=== PATIENT | male | born 1985 | race Caucasian/White ===

== ENCOUNTER 2020-04-05 23:19 | Emergency (ER) | payer SELFPAY ==
--- NOTE | 2020-04-05 23:53 | EDM.PDOC ---
ED HPI GENERAL MEDICAL PROBLEM - General Chief Complaint: General Stated Complaint: MEDICAL CLEARANCE - L shoulder pain Time Seen by Provider: 04/05/20 23:25 Source of Information: Reports: Patient, Police History Limitations: Reports: No Limitations - History of Present Illness INITIAL COMMENTS - FREE TEXT/NARRATIVE: History of present illness: [Patient is 34-year-old male who presents with the police for medical clearance. He was involved in a foot pursuit, eventually wrestled to the ground and handcuffed and taken into custody by police. He complains of some left shoulder pain. Denies any blurry vision, headache, major head trauma, loss of consciousness. Denies chest pain or shortness of breath. Denies fever and chills. States that his left shoulder "just does not feel right." ] Review of systems: As per history of present illness and below otherwise all systems reviewed and negative. Past medical history: As per history of present illness and as reviewed below otherwise noncontributory. Surgical history: As per history of present illness and as reviewed below otherwise noncontributory. Social history: No reported history of drug or alcohol abuse. Family history: As per history of present illness and as reviewed below otherwise noncontributory. Physical exam: General: Awake, alert, no acute distress, A&O X3. HEENT: Atraumatic, normocephalic, pupils reactive, negative for conjunctival pallor or scleral icterus, mucous membranes moist, throat clear, neck supple, nontender, trachea midline. Lungs: Clear to auscultation, breath sounds equal bilaterally, chest nontender. Heart: RRR, normal S1S2, no JVD. Abdomen: Soft, nondistended, nontender. Negative for masses or hepatosplenomegaly. Negative for costovertebral tenderness. Pelvis: Stable nontender. Genitourinary: Deferred. Rectal: Deferred. Extremities: Suspected anterior left shoulder dislocation based on physical exam. Limited range of motion of the left shoulder due to pain. Left arm is neurovascular intact. Neuro: Motor and sensory grossly intact throughout. Exam nonfocal. Diagnostics: [] Therapeutics: [] Impression: [] Plan: [] Definitive disposition and diagnosis as appropriate pending reevaluation and review of above. Past Medical History - Past Health History Medical/Surgical History: Denies Medical/Surgical History - Infectious Disease History Infectious Disease History: Reports: None Social & Family History - Family History Family Medical History: Noncontributory - Tobacco Use Smoking Status *Q: Never Smoker - Caffeine Use Caffeine Use: Reports: Coffee - Recreational Drug Use Recreational Drug Use: No ED ROS GENERAL - Review of Systems Review Of Systems: Comprehensive ROS is negative, except as noted in HPI. ED EXAM, GENERAL - Physical Exam Exam: See Below (see h and p) ED GENERAL MEDICAL PROCEDURES - Joint Reduction Left Shoulder Sedation: Conscious Sedation Pre-procedure NV status: Normal Post-procedure NV status: Normal Technique: Traction/Counter Traction Number of Attempts: 1 Post-Reduction Imaging: Completely Reduced Joint Reduction Complications: No - Additional/Other Procedure(s) Other (Free Text) Procedure(s): procedural sedation performed using 2 mg versed and 100 mcg fentanyl IV. Patient tolerated well, no immediate complications. Returned to baseline mental status prior to discharge. Course - Vital Signs Text/Narrative:: Patient had successful reduction of his shoulder dislocation. Return to his baseline mental status prior to discharge after being sedated with fentanyl and Versed here in the ED. Left arm was neurovascular intact before and after the procedure as well. Patient is agreeable to discharge into police custody and encouraged to follow-up with orthopedic surgery in the future. Return precautions provided otherwise patient is stable at discharge. Last Recorded V/S: Last Vital Signs Temp 37.4 C 04/05/20 23:36 Pulse 97 04/05/20 23:36 Resp 17 04/05/20 23:36 BP 164/92 H 04/05/20 23:36 Pulse Ox 95 04/05/20 23:36 - Orders/Labs/Meds Orders: Active Orders 24 hr Category Date Time Status Shoulder Comp Lt [CR] Stat Exams 04/06/20 00:26 Taken Sodium Chloride 0.9% [Saline Flush] Med 04/05/20 23:54 Active 10 ml FLUSH ASDIRECTED PRN Sodium Chloride 0.9% [Saline Flush] Med 04/05/20 23:54 Active 2.5 ml FLUSH ASDIRECTED PRN DME for Discharge [COMM] Stat Oth 04/06/20 00:51 Ordered Saline Lock Insert [OM.PC] Stat Oth 04/05/20 23:54 Ordered Medication Orders Sodium Chloride (Saline Flush) 10 ml FLUSH ASDIRECTED PRN PRN Reason: Keep Vein Open Last Admin: 04/06/20 00:43 Dose: 10 ml Documented by: [id number] Sodium Chloride (Saline Flush) 2.5 ml FLUSH ASDIRECTED PRN PRN Reason: Keep Vein Open Last Admin: 04/06/20 00:43 Dose: 2.5 ml Documented by: [email or web address] Labs: Laboratory Tests 04/05/20 Range/Units 23:46 POC Glucose 113 H (60-110) mg/dL Meds: Medications Generic Name Dose Route Start Last Admin Trade Name Freq PRN Reason Stop Dose Admin Sodium Chloride 10 ml 04/05/20 23:54 04/06/20 00:43 Saline Flush FLUSH 10 ml ASDIRECTED PRN Administration Keep Vein Open Sodium Chloride 2.5 ml 04/05/20 23:54 04/06/20 00:43 Saline Flush FLUSH 2.5 ml ASDIRECTED PRN Administration Keep Vein Open Discontinued Medications Generic Name Dose Route Start Last Admin Trade Name Freq PRN Reason Stop Dose Admin Fentanyl 100 mcg 04/06/20 00:03 04/06/20 00:43 Fentanyl IVPUSH 04/06/20 00:04 100 mcg ONETIME ONE Administration Midazolam HCl 2 mg 04/06/20 00:03 04/06/20 00:42 Versed 1 Mg/Ml IVPUSH 04/06/20 00:04 2 mg ONETIME ONE Administration Departure - Departure Time of Disposition: 01:05 Disposition: Home, Self-Care 01 Condition: Good Clinical Impression: Shoulder dislocation - Discharge Information Instructions: Shoulder Dislocation Referrals: PCP,None [Primary Care Provider] - Forms: ED Department Discharge Additional Instructions: [facility] - [facility] Clinic [address], [facility] [address] [place] [address] Follow-up with orthopedic surgery and PCP. Return to the ER with any new or worsening symptoms. Keep the sling on for the next 24 hours, gradually return to normal range of motion and activity and consultation with orthopedic surgery. The following information is given to patients seen in the emergency department who are being discharged to home. This information is to outline your options for follow-up care. We provide all patients seen in our emergency department with a follow-up referral. The need for follow-up, as well as the timing and circumstances, are variable depending upon the specifics of your emergency department visit. If you don't have a primary care physician on staff, we will provide you with a referral. We always advise you to contact your personal physician following an emergency department visit to inform them of the circumstance of the visit and for follow-up with them and/or the need for any referrals to a consulting specialist. The emergency department will also refer you to a specialist when appropriate. This referral assures that you have the opportunity for follow-up care with a specialist. All of these measure are taken in an effort to provide you with optimal care, which includes your follow-up. Under all circumstances we always encourage you to contact your private physician who remains a resource for coordinating your care. When calling for follow-up care, please make the office aware that this follow-up is from your recent emergency room visit. If for any reason you are refused follow-up, please contact the [facility] Emergency Department at and asked to speak to the emergency department charge nurse. Sepsis Event Note (ED) - Evaluation Sepsis Screening Result: No Definite Risk - Focused Exam Vital Signs: Vital Signs Temp Pulse Resp BP Pulse Ox 04/05/20 23:36 37.4 C 97 17 164/92 H 95 - My Orders Last 24 Hours: My Active Orders 04/05/20 23:54 Sodium Chloride 0.9% [Saline Flush] 10 ml FLUSH ASDIRECTED PRN Sodium Chloride 0.9% [Saline Flush] 2.5 ml FLUSH ASDIRECTED PRN Saline Lock Insert [OM.PC] Stat 04/06/20 00:26 Shoulder Comp Lt [CR] Stat 04/06/20 00:51 DME for Discharge [COMM] Stat - Assessment/Plan Last 24 Hours: My Active Orders 04/05/20 23:54 Sodium Chloride 0.9% [Saline Flush] 10 ml FLUSH ASDIRECTED PRN Sodium Chloride 0.9% [Saline Flush] 2.5 ml FLUSH ASDIRECTED PRN Saline Lock Insert [OM.PC] Stat 04/06/20 00:26 Shoulder Comp Lt [CR] Stat 04/06/20 00:51 DME for Discharge [COMM] Stat
[2020-04-05] MEDS ORDERED: Sodium Chloride 0.9% 2.5 ML Syringe FLUSH PRN (23:54)
[2020-04-05] MEDS ORDERED: Sodium Chloride 0.9% 10 ML Syringe FLUSH PRN (23:54)
[2020-04-06] MEDS ORDERED: fentaNYL 50 MCG/ML SDV IVPUSH ONE (00:03)
[2020-04-06] MEDS ORDERED: Midazolam 1 MG/ML 2 ML SDV IVPUSH ONE (00:03)
--- NOTE | 2020-04-06 00:21 | CR ---
Indication: Dislocation Technique: Three views of the left shoulder Comparison: None available Findings: Bones: Anteroinferior dislocation of the humeral head in relation to the glenoid. No displaced fractures seen. A small ovoid sclerotic focus in the glenoid which could represent a bone island. Joint spaces: Unremarkable. Soft tissues: Unremarkable. Impression: Anterior shoulder dislocation. Dictated by Ad Murcia MD @ 04/06/2020 12:19:02 AM Dictated by: Ad Murcia MD @ 04/06/2020 00:19:05 (Electronically Signed)
--- NOTE | 2020-04-06 01:02 | CR ---
INDICATION: Post reduction TECHNIQUE: Two views left shoulder 12:29 a.m. COMPARISON: The reduction views with 50 7 p.m. FINDINGS: Bones: Alignment is normal. No fractures or bone lesions. Joint spaces: Unremarkable. Soft tissues: Unremarkable. IMPRESSION: Anatomic alignment at the glenohumeral joint. No fractures. Dictated by Jc Mendoza MD @ 04/06/2020 1:02:04 AM Dictated by: Jc Mendoza MD @ 04/06/2020 01:02:09 (Electronically Signed)
== END 2020-04-06 01:25 | disposition home or self-care (01) ==
LOC: MW.ED 23:19
DX: S43.005A Unspecified dislocation of left shoulder joint, initial encounter (principal); S00.91XA Abrasion of unspecified part of head, initial encounter; F10.129 Alcohol abuse with intoxication, unspecified; Y93.72 Activity, wrestling
CPT/HCPCS: 23655; 73030; 82962; 99284; J2250; J3010; 99283

== ENCOUNTER 2024-05-15 00:58 | Emergency (ER) | payer BC ==
[2024-05-15] MEDS: Acetaminophen 500 MG Tab PO PRN (01:21)
[2024-05-15] MEDS: Ketorolac 30 MG/ML SDV IM PRN (01:22)
[2024-05-15] MEDS: oxyCODONE 5 MG Tab PO ONE (01:29)
[2024-05-15] MEDS: Ondansetron 4 MG Tab.DIS PO ONE (01:29)
== END 2024-05-15 02:54 | disposition home or self-care (01) ==
LOC: MW.ED 00:58
DX: S82.221A Displaced transverse fracture of shaft of right tibia, initial encounter for closed fracture (principal); S80.11XA Contusion of right lower leg, initial encounter; W01.118A Fall on same level from slipping, tripping and stumbling with subsequent striking against other sharp object, initial encounter; Z88.0 Allergy status to penicillin
CPT/HCPCS: 29515; 73590; 96372; 99283; A9270; J1885